=== PATIENT | female | born 1950 | race Caucasian/White ===

== ENCOUNTER 2017-10-25 06:20 | Emergency (ER) | payer MEDICARE, OTHER ==
[~2017-10-25] VITALS: Ht 160 cm; Wt 86.3 kg
[~2017-10-25 06:20] MED LIST: ASPI-630 PO; ATOR20TA PO; HYDR25TA9 PO; LEVO25TA4 PO; LOSA50TA6 PO; METF500T9 PO; POTA20LI27 PO
--- NOTE | 2017-10-25 06:42 | EKG ---
[address] [address] Test Date: 2017-10-25 Test Time: 06:31:18 Pat Name: BAILEY WRIGHT Department: Room: Gender: F Pumper Helper: JAN : 1950 Requested By: PAUL LEHMAN Order Number: [id number] Reading MD: Measurements Intervals [place] Rate: 64 P: 89 VT: 200 QRS: 9 QRSD: 74 T: 86 QT: 394 QTc: 410 Interpretive Statements SINUS RHYTHM VENTRICULAR PREMATURE COMPLEX(ES) ST & T ABNORMALITY, CONSIDER HIGH LATERAL ISCHEMIA OR LEFT VENTRICULAR STRAIN ABNORMAL ECG RI6.01 No previous ECG available for comparison
[2017-10-25 07:15] LABS: BASO % 1 % (0-3); EOS # 0.2 x10^3/uL (0.0-0.7); EOS % 3 % (0-3); HEMATOCRIT 40.6 % (36.0-47.0); HEMOGLOBIN 14.1 g/dL (12.0-15.5); LYMPH # 1.6 x10^3/uL (1.0-4.8); LYMPH % 28 % (24-48); MEAN CORPUSCULAR HEMOGLOBIN 31 pg (25-35); MEAN CORPUSCULAR HGB CONC 35 g/dL (31-37); MEAN CORPUSCULAR VOLUME 89 fL (79-100); MONO # 0.6 x10^3/uL (0.0-1.1); MONO % 10 % (0-9); NEUT # 3.4 x10^3uL (1.8-7.7); NEUT % 58 % (31-73); PLATELET COUNT 231 x10^3/uL (140-400); RED BLOOD COUNT 4.57 x10^6/uL (3.50-5.40); RED CELL DISTRIBUTION WIDTH 13.6 % (11.5-14.5); WHITE BLOOD COUNT 5.8 x10^3/uL (4.0-11.0)
[2017-10-25 07:39] LABS: ALBUMIN 3.7 g/dL (3.4-5.0); ALBUMIN/GLOBULIN RATIO 1.1 (1.0-1.7); CALCIUM 8.8 mg/dL (8.5-10.1); GFR 55.5; TOTAL BILIRUBIN 0.6 mg/dL (0.2-1.0); TOTAL PROTEIN 7.2 g/dL (6.4-8.2)
--- NOTE | 2017-10-25 07:44 | PHYS DOC ---
Past History Past Medical History: Arthritis, Diabetes, High Cholesterol, Hypertension, Hypothyroid Past Surgical History: No Surgical History Alcohol Use: None Drug Use: None Adult General Chief Complaint Chief Complaint: my heart stopped [facility] 67-year-old female patient with history of diabetes, dyslipidemia, hypertension and hypothyroidism without cardiac problem states she woke up with unusual feeling in her heart and felt looked like her heart was stopped. Patient complaining of not feeling right at that time without weakness, chest pain, shortness of breath, palpitation. Patient states the episodes last about 10 minutes and then she felt heart her heart beat for a short time. Patient states she had 2 other episodes of the same problem during the last 1 month without seeking medical attention. Review of Systems Review of Systems Constitutional: Denies fever or chills [] Eyes: Denies change in visual acuity, redness, or eye pain [] HENT: Denies nasal congestion or sore throat [] Respiratory: Denies cough or shortness of breath [] Cardiovascular: No additional information not addressed in HPI [] GI: Denies abdominal pain, nausea, vomiting, bloody stools or diarrhea [] : Denies dysuria or hematuria [] Musculoskeletal: Denies back pain or joint pain [] Integument: Denies rash or skin lesions [] Neurologic: Denies headache, focal weakness or sensory changes [] Endocrine: Denies polyuria or polydipsia [] All other systems were reviewed and found to be within normal limits, except as documented in this note. Allergies Allergies Allergies Coded Allergies Type Severity Reaction Last Updated Verified lisinopril Allergy Intermediate 10/25/17 No Physical Exam Physical Exam Constitutional: Well developed, well nourished, no acute distress, non-toxic appearance. [] HENT: Normocephalic, atraumatic, bilateral external ears normal, oropharynx moist, no oral exudates, nose normal. [] Eyes: PERRLA, EOMI, conjunctiva normal, no discharge. [] Neck: Normal range of motion, no tenderness, supple, no stridor. [] Cardiovascular:Heart rate regular rhythm, no murmur [] Lungs & Thorax: Bilateral breath sounds clear to auscultation [] Abdomen: Bowel sounds normal, soft, no tenderness, no masses, no pulsatile masses. [] Skin: Warm, dry, no erythema, no rash. [] Back: No tenderness, no CVA tenderness. [] Extremities: No tenderness, no cyanosis, no clubbing, ROM intact, no edema. [] Neurologic: Alert and oriented X 3, normal motor function, normal sensory function, no focal deficits noted. [] Psychologic: Affect normal, judgement normal, mood normal. [] Current Patient Data Vital Signs Vital Signs Date Time Temp Pulse Resp B/P (MAP) Pulse Ox O2 Delivery O2 Flow Rate FiO2 10/25/17 06:30 97.6 55 22 176/93 (120) 96 Room Air Lab Results Laboratory Tests Test 10/25/17 06:35 White Blood Count 5.8 x10^3/uL (4.0-11.0) Red Blood Count 4.57 x10^6/uL (3.50-5.40) Hemoglobin 14.1 g/dL (12.0-15.5) Hematocrit 40.6 % (36.0-47.0) Mean Corpuscular Volume 89 fL (79-100) Mean Corpuscular Hemoglobin 31 pg (25-35) Mean Corpuscular Hemoglobin Concent 35 g/dL (31-37) Red Cell Distribution Width 13.6 % (11.5-14.5) Platelet Count 231 x10^3/uL (140-400) Neutrophils (%) (Auto) 58 % (31-73) Lymphocytes (%) (Auto) 28 % (24-48) Monocytes (%) (Auto) 10 % (0-9) H Eosinophils (%) (Auto) 3 % (0-3) Basophils (%) (Auto) 1 % (0-3) Neutrophils # (Auto) 3.4 x10^3uL (1.8-7.7) Lymphocytes # (Auto) 1.6 x10^3/uL (1.0-4.8) Monocytes # (Auto) 0.6 x10^3/uL (0.0-1.1) Eosinophils # (Auto) 0.2 x10^3/uL (0.0-0.7) Basophils # (Auto) 0.0 x10^3/uL (0.0-0.2) EKG EKG EKG interpreted by me. EKG at 0 631 showed sinus rhythm with frequent PVCs, ST and T wave abnormality in lateral leads, no acute ST and T wave abnormality. Radiology/Procedures Radiology/Procedures [Two-view chest x-ray interpreted by me did not show acute finding except for mild cardiomegaly] Course & Med Decision Making Course & Med Decision Making Pertinent Labs and Imaging studies reviewed. (See chart for details) Evaluation of patient in ER showed 67-year-old female patient with several episodes of unusual feeling in her cough for the last 1 month. Patient had one episodes of feeling of her heart was stopped this morning that last about 10 minutes without loss of consciousness. Patient had frequent PVCs at arrival to ER that gradually resolved. Had unremarkable EKG and labs except for mild elevation of BNP. For patient admission for observation and continued on customer retention specialist. Patient refuses admission. Patient instructed to follow up with her primary care physician for possible Holter monitor. discharge: I've spoken with the patient and/or caregivers. I've explained the patient's condition, diagnosis and treatment plan based on information available to me at this time. I've answered the patient's and/or caregivers questions and addressed any concerns. The patient and/or caregivers have a good understanding the patient's diagnosis, condition and treatment plan as can be expected at this point. Vital signs have been stabilized. The patient's condition is stable for discharge from the emergency department. The patient will pursue further outpatient evaluation with her primary care provider or other designated consulting physician as outlined in the discharge instructions. Patient and/or caregivers are agreeable to this plan of care and follow-up instructions have been explained in detail. The patient and/or caregivers have received these instructions in written format and expressed understanding of these discharge instructions. The patient and her caregivers are aware that if any significant change in condition or worsening of symptoms should prompt him to immediately return to this of the closest emergency department. If an emergent department is not readily available I would encourage him to call 911. Dragon Disclaimer Dragon Disclaimer This electronic medical record was generated, in whole or in part, using a voice recognition dictation system. Departure Departure: Impression: Primary Impression: Arrhythmia Additional Impression: Heart failure Disposition: HOME, SELF-CARE (At 0834) Condition: IMPROVED Referrals: FELIX BARNES MD (PCP) Patient Instructions: Cardiac Arrhythmia Additional Instructions: Follow-up with your primary care physician in one or 2 days for possible Holter customer retention specialist Return if not getting better Problem Qualifiers PAUL LEHMAN MD Oct 25, 2017 07:44
[2017-10-25 08:30] VITALS: BP 149/85
--- NOTE | 2017-10-25 10:01 | RAD ---
PROCEDURE: CHEST PA LATERAL CLINICAL INDICATION: irregular heartbeat COMPARISON: 10/22/2015 FINDINGS: No pneumothorax identified. Cardiac and mediastinal contours unremarkable. No pulmonary consolidation or acute airspace disease. No acute osseous abnormalities identified. IMPRESSION: No pulmonary consolidation or acute airspace disease.
== END 2017-10-25 08:47 | disposition home or self-care (01) ==
LOC: ER 06:20
DX: I49.9 Cardiac arrhythmia, unspecified (principal); I11.0 Hypertensive heart disease with heart failure; I50.9 Heart failure, unspecified; E78.00 Pure hypercholesterolemia, unspecified; E11.9 Type 2 diabetes mellitus without complications; E03.9 Hypothyroidism, unspecified; Z88.8 Allergy status to other drugs, medicaments and biological substances
CPT/HCPCS: 36415; 71046; 80053; 82553; 83605; 83735; 83880; 84443; 84484; 85025; 85610; 93005; 99285-25

== ENCOUNTER 2019-06-26 05:28 | Observation (INO) | payer MEDICARE, OTHER ==
[~2019-06-26] VITALS: Ht 165.1 cm; Wt 86.0 kg
[~2019-06-26 05:28] MED LIST changes: +HYDR-2145 PO; -HYDR25TA9 PO; -LOSA50TA6 PO; +LOSA50TA86 PO; +METF500T11 PO; -METF500T9 PO
[2019-06-26] MEDS ORDERED: ASPIRIN 81 MG TAB.CHEW PO ONE (05:45)
--- NOTE | 2019-06-26 05:55 | PHYS DOC ---
Adult General Chief Complaint Chief Complaint: CHEST PAIN HPI HPI 69-year-old female presents with chest pain. Patient woke about 40 minutes prior to arrival with a central chest pain that radiates into her left arm and up her neck. She describes the pain as sharp. It is a 7 out of 10. She has not had pain like this before. She does have mild shortness of breath but denies diaphoresis. She is very active. 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 She has not been feeling abnormal prior to early this morning. No recent medication changes. No history of heart problems. She had a stress test several years ago. She denies fever or chills. Review of Systems Review of Systems Constitutional: Denies fever or chills [] Eyes: Denies change in visual acuity, redness, or eye pain [] HENT: Denies nasal congestion or sore throat [] Respiratory: Denies cough or shortness of breath [] Cardiovascular: No additional information not addressed in HPI [] GI: Denies abdominal pain, nausea, vomiting, bloody stools or diarrhea [] : Denies dysuria or hematuria [] Musculoskeletal: Denies back pain or joint pain [] Integument: Denies rash or skin lesions [] Neurologic: Denies headache, focal weakness or sensory changes [] Endocrine: Denies polyuria or polydipsia [] All other systems were reviewed and found to be within normal limits, except as documented in this note. Current Medications Current Medications Current Medications Medications (Trade) Dose Ordered Sig/Mora Start Time Stop Time Status Last Admin Dose Admin Aspirin (Children'S Aspirin) 324 mg 1X ONCE 06/26/19 05:45 06/26/19 05:46 UNV 06/26/19 05:44 324 MG Physical Exam Physical Exam Constitutional: Well developed, well nourished, no acute distress, non-toxic appearance. [] HENT: Normocephalic, atraumatic, bilateral external ears normal, oropharynx moist, no oral exudates, nose normal. [] Eyes: PERRLA, EOMI, conjunctiva normal, no discharge. [] Neck: Normal range of motion, no tenderness, supple, no stridor. [] Cardiovascular:Heart rate regular rhythm, no murmur [] Lungs & Thorax: Bilateral breath sounds clear to auscultation [] Abdomen: Bowel sounds normal, soft, no tenderness, no masses, no pulsatile masses. [] Skin: Warm, dry, no erythema, no rash. [] Back: No tenderness, no CVA tenderness. [] Extremities: No tenderness, no cyanosis, no clubbing, ROM intact, no edema. [] Neurologic: Alert and oriented X 3, normal motor function, normal sensory function, no focal deficits noted. [] Psychologic: Affect normal, judgement normal, mood normal. [] EKG EKG Sinus rhythm, rate 68, normal axis, no ST elevations or depressions, PACs, incomplete right bundle branch block.[] Radiology/Procedures Radiology/Procedures [] Course & Med Decision Making Course & Med Decision Making Pertinent Labs and Imaging studies reviewed. (See chart for details) The patient was given 324 aspirin. The patient's workup is pending. I am signing the patient out to Dr. Martins at 0600 for further management and final disposition. [] Dragon Disclaimer Dragon Disclaimer This electronic medical record was generated, in whole or in part, using a voice recognition dictation system. Departure Departure: Disposition: HOME/RESIDENCE PRIOR TO ADM Condition: STABLE Referrals: FELIX BARNES MD (PCP) YADIRA VENCES DO Jun 26, 2019 05:55
[2019-06-26 06:09] LABS: BASO % 1 % (0-3); EOS # 0.2 x10^3/uL (0.0-0.7); EOS % 2 % (0-3); HEMATOCRIT 38.4 % (36.0-47.0); HEMOGLOBIN 13.3 g/dL (12.0-15.5); LYMPH # 1.7 x10^3/uL (1.0-4.8); LYMPH % 24 % (24-48); MEAN CORPUSCULAR HEMOGLOBIN 31 pg (25-35); MEAN CORPUSCULAR HGB CONC 35 g/dL (31-37); MEAN CORPUSCULAR VOLUME 89 fL (79-100); MONO # 0.8 x10^3/uL (0.0-1.1); MONO % 11 % (0-9); NEUT # 4.3 x10^3uL (1.8-7.7); NEUT % 62 % (31-73); PLATELET COUNT 240 x10^3/uL (140-400); RED BLOOD COUNT 4.31 x10^6/uL (3.50-5.40); RED CELL DISTRIBUTION WIDTH 13.9 % (11.5-14.5)
[2019-06-26 06:17] LABS: ALBUMIN 3.5 g/dL (3.4-5.0); ALBUMIN/GLOBULIN RATIO 0.9 (1.0-1.7); CALCIUM 8.7 mg/dL (8.5-10.1); CREATININE 1.1 mg/dL (0.6-1.0); GFR 49.4; POTASSIUM 3.5 mmol/L (3.5-5.1); TOTAL BILIRUBIN 0.4 mg/dL (0.2-1.0); TOTAL PROTEIN 7.2 g/dL (6.4-8.2)
--- NOTE | 2019-06-26 06:47 | EKG ---
[address] [address] Test Date: 2019-06-26 Test Time: 05:34:06 Pat Name: BAILEY WRIGHT Department: Room: Gender: F Admissions Nurse: : 1950 Requested By: YADIRA VENCES Order Number: [id number] Reading MD: Measurements Intervals [place] Rate: 68 P: 68 [place]: 186 QRS: -2 QRSD: 82 T: 25 QT: 510 QTc: 543 Interpretive Statements SINUS RHYTHM VENTRICULAR PREMATURE COMPLEX(ES) ATRIAL PREMATURE COMPLEX(ES) LEFTWARD AXIS PROLONGED QT ABNORMAL ECG RI6.01 No previous ECG available for comparison
[2019-06-26] MEDS ORDERED: ACETAMINOPHEN 325 MG TABLET PO PRN (07:00)
[2019-06-26] MEDS ORDERED: NITROGLYCERIN SUBLINGUAL 0.4 MG BOTTLE OF 25. SL PRN (07:00)
[2019-06-26] MEDS ORDERED: ONDANSETRON PF 4 MG/2 ML VIAL. IV PRN (07:00)
[2019-06-26] MEDS ORDERED: MORPHINE SULFATE 4 MG/ML DISP.SYRIN. IV ONE (07:30)
--- NOTE | 2019-06-26 07:51 | RAD ---
Indication:Chest pain, cough. TECHNIQUE:Portable AP chest X-ray COMPARISON: None FINDINGS: Heart is normal in size. Mild prominence of bronchial markings. No focal consolidation. No pneumothorax or pleural effusion. Visualized bony thorax within normal limits. IMPRESSION: Suggestion of mild bronchitis/atypical/viral infection. Electronically signed by: Mathew Wells DO (06/26/2019 7:49 AM) [id number]
[2019-06-26 08:03] VITALS: BP 112/62
[2019-06-26] MEDS ORDERED: MAALOX:LIDO:APAP 6:2:1 ORAL SUSPENSION 180 ML BOTTLE. PO PRN (10:15)
[2019-06-26] MEDS ORDERED: LOSA50TA86 PO (10:16)
[2019-06-26] MEDS ORDERED: HYDR12.572 PO (10:16)
[2019-06-26] MEDS ORDERED: MELO15TA23 PO (10:16)
[2019-06-26] MEDS ORDERED: LEVO25TA4 PO (10:16)
[2019-06-26] MEDS ORDERED: METF500T11 PO (10:16)
[2019-06-26] MEDS ORDERED: PANTOPRAZOLE 40 MG TABLET. PO SCH (10:30)
[2019-06-26] MEDS ORDERED: DOXYCYCLINE HYCLATE 100 MG TABLET PO SCH (10:30)
[2019-06-26] MEDS ORDERED: LEVOTHYROXINE 25 MCG TABLET. PO SCH (10:30)
[2019-06-26] MEDS ORDERED: MELOXICAM 15 MG TABLET. PO SCH (10:30)
[2019-06-26] MEDS ORDERED: HEPARIN 25,000UTS/500ML PREMIX 500 ML IV PRN ×2 (10:45→11:15)
[2019-06-26] MEDS ORDERED: NITROGLYCERIN OINT 1 GM PACKET. TP ONE (10:45)
[2019-06-26 10:54] VITALS: BP 157/67
--- NOTE | 2019-06-26 10:56 | EKG ---
[address] [address] Test Date: 2019-06-26 Test Time: 10:19:47 Pat Name: BAILEY WRIGHT Department: Room: 115 A Gender: F Career Development Associate: : 1950 Requested By: AMBER VILLAFANA Order Number: [id number] Reading MD: Measurements Intervals [place] Rate: 45 P: 90 ND: 182 QRS: 13 QRSD: 74 T: 56 QT: 470 QTc: 409 Interpretive Statements SINUS BRADYCARDIA T ABNORMALITY IN HIGH LATERAL LEADS ABNORMAL ECG RI6.02 No previous ECG available for comparison
[2019-06-26] MEDS ORDERED: HEPARIN for IV BOLUS 10,000 UNIT/10 ML VIAL. IV ONE (11:15)
[2019-06-26] MEDS ORDERED: HEPARIN for IV BOLUS 10,000 UNIT/10 ML VIAL. IV PRN ×2 (11:15)
[2019-06-26 11:30] VITALS: BP 168/56
--- NOTE | 2019-06-26 11:51 | HP ---
ADMIT DATE: 06/26/2019 HISTORY OF PRESENT ILLNESS: A 69-year-old female with history of diabetes. The patient apparently this morning started to develop substernal chest pain, feeling like something was going heaviness through her chest and as a result of that, the patient noted this pain woke her up. Pain radiated down her left arm and up into her neck. She said the pain was approximately 7/10. She has some shortness of breath, but denied nausea, vomiting, or diaphoresis. In any case, the patient came in through the Emergency Room. She was admitted here to the floor for observation as her initial cardiac enzymes and EKGs were unremarkable. The patient, however, continued to have recurrent chest pain on the floor and was given additional nitroglycerin and repeat EKG and repeat troponins and the latter increased to greater than 1. As a result of this, a call was placed to Dr. Rabago, title investigator, who agreed to accept her in transfer to [place], placed her on a heparin drip, nitro paste and she will be transferred to the ICU down there at [place] for further evaluation by Dr. Rabago. PAST MEDICAL HISTORY: Includes that of angina, hypertension, arthritis, diabetes, hypothyroidism. FAMILY HISTORY: Unremarkable. ALLERGIES: LISINOPRIL. HOME MEDICATIONS: Include that of losartan 50 mg daily, meloxicam 15 mg daily, hydrochlorothiazide daily, metformin 500 mg before breakfast and levothyroxine 25 mcg daily. SOCIAL HISTORY: The patient denies smoking, alcohol or drug use. She is a full code. REVIEW OF SYSTEMS: The patient denies headache. Does have some mild shortness of breath. Denies any diaphoresis or nausea, vomiting. Does have the chest pain as described, dull achy sensation in substernal chest area, radiating down the left arm. The patient denies any abdominal pain, nausea, vomiting, melena, hematochezia, hematemesis and neurologically she has had no changes in her neural system. PHYSICAL EXAMINATION: GENERAL: This is a pleasant white female, in no apparent distress at the present time. VITAL SIGNS: Blood pressure 157/67, respiratory rate 20, pulse 45, afebrile, body mass index of 31.5. Weight 85.98 kilos, height 165 cm. The patient is alert and oriented. HEENT: Head atraumatic, normocephalic. Eyes: PERRLA without jaundice. The mouth and throat were normal. NECK: Supple, no JVD or thyromegaly. LUNGS: Diminished throughout, poor movement of air, but clear throughout. CARDIOVASCULAR: Regular sinus rhythm, occasional dropped beat. ABDOMEN: Soft, nontender, no rebound or guarding. Positive bowel sounds, no hepatosplenomegaly. EXTREMITIES: No clubbing, cyanosis, nor edema. Pulses noted distally 2/4. NEUROLOGIC: The patient is alert and oriented. Speech is fluent, spontaneous, appropriate. Cranial nerves 2-12 grossly intact. Moving all extremities well. Does have some tingling down the left arm as noted. LABORATORY DATA: The patient's labs as indicated sodium and potassium 138 and 3.5, BUN and creatinine 21 and 1.1, GFR 49, blood sugar of 164. Last troponin 1.020, elevated. Albumin is slightly low. The patient's CBC: White count 7, hemoglobin 13 and hematocrit 38. Chest x-ray was unremarkable and clear except for possible mild bronchitis, started on doxycycline for this. IMPRESSION: Therefore, possible angina, chest pain, essential hypertension, bradycardia, elevated troponin levels, type 2 diabetes, obesity, chronic kidney disease stage 3. PLAN: The patient will be transferred down to [place] in care of Dr. Rabago, Cardiology, make further evaluation as he sees appropriate. She will be transferred via EMS. Transfer orders have been related to the ICU doctors at [place]. AMBER VILLAFANA MD DR: LYLA/shilo JOB#: [id number] / [id number]
[2019-06-26] MEDS ORDERED: LACTOBACILLUS RHAMNOSUS GG 1 CAPSULE. PO SCH (21:00)
[2019-06-27 03:06] LABS: HEMOGLOBIN A1C 6.9 % (4.8-5.6)
[2019-06-27] MEDS ORDERED: metFORMIN XR 500 MG TAB.ER.24H PO SCH (08:00)
[2019-06-27] MEDS ORDERED: LOSARTAN 50 MG TABLET. PO SCH (09:00)
[2019-06-27] MEDS ORDERED: hydroCHLOROthiazide 12.5 MG CAPSULE PO SCH (09:00)
== END 2019-06-26 11:30 | disposition short-term general hospital (02) ==
LOC: ER 05:28 → MERGE 08:01 → 1 SOUTH 08:01
PROVIDERS: ADMIT Family Medicine; ATTEND Family Medicine
DX: R07.2 Precordial pain (principal); E11.9 Type 2 diabetes mellitus without complications; I10 Essential (primary) hypertension; E03.9 Hypothyroidism, unspecified; M19.90 Unspecified osteoarthritis, unspecified site; E11.22 Type 2 diabetes mellitus with diabetic chronic kidney disease; I12.9 Hypertensive chronic kidney disease with stage 1 through stage 4 chronic kidney disease, or unspecified chronic kidney disease; N18.3 Chronic kidney disease, stage 3 (moderate); R79.89 Other specified abnormal findings of blood chemistry; E66.9 Obesity, unspecified
CPT/HCPCS: 36415; 71045; 80053; 80061; 83036; 83735; 84443; 84484; 85025; 85379; 85610; 85730; 93005; 96374; 96375; 99284; G0378; J1644; J2270; G0379

== ENCOUNTER → 2020-08-07 | Outpatient (CLI) | payer MEDICARE ==
[~2020-08-07] MED LIST changes: +HYDR12.572 PO; +MELO15TA23 PO; +METF-658 PO; -METF500T11 PO
--- NOTE | 2020-08-07 16:01 | RAD ---
DATE: 08/07/2020 2:00 PM EXAM: MAMMO IGOR BOOTH, BREAST BILATERAL HISTORY: 70-year-old woman due for mammographic screening presents with tenderness in both breasts, no palpable abnormality on self exam. Patient reports that her provider questioned a palpable area where her focal tenderness was located. COMPARISON: None. This will serve as a new baseline. Bilateral CC and MLO views of the breasts were performed. Bilateral breast tomosynthesis was performed in CC and MLO projections. This study was interpreted with the benefit of Computerized Aided Detection (CAD). Targeted ultrasound of the right breast and left chest wall in the areas of tenderness was also performed. FINDINGS: Breast Density: FATTY The Breast Parenchyma is primarily fatty replaced. Breast parenchyma level density A. A BB marker in the upper inner right breast at the approximate 1:00 position 12 cm from the nipple identifies the patient's reported area of focal tenderness in the right breast. A second BB marker in the far lateral left breast projecting over the pectoralis muscle and is not visible on the cc view is present, identifying the area of focal tenderness in the lateral left chest wall. There are no mammographic correlates to either areas of focal tenderness. No suspicious masses, microcalcifications or architectural distortion is present to suggest malignancy in either breast. The visualized axillae are unremarkable. Furthermore, targeted ultrasound of the bilateral breasts in the areas of clinical concern including the right breast 1:00 position 10 cm from the nipple (on ultrasound) and the 11:00 left breast 11 cm from the nipple, revealed no sonographic correlate to the areas of focal tenderness. Patient reports at this visit that the tenderness has abated. IMPRESSION: Negative bilateral mammogram and targeted breast ultrasound. No evidence of malignancy. BI-RADS CATEGORY: 1 NEGATIVE RECOMMENDED FOLLOW-UP: CLIN FOLLOW UP IMAGING CLINICALLY INDICATED Annual screening mammography is recommended, unless clinically indicated sooner based on symptoms or change in physical exam. PQRS compliance statement: Patient information was entered into a reminder system with a target due date for the next mammogram. Mammography is a sensitive method for finding small breast cancers, but it does not detect them all and is not a substitute for careful clinical examination. A negative mammogram does not negate a clinically suspicious finding and should not result in delay in biopsying a clinically suspicious abnormality. "Our facility is accredited by the [employer] Mammography Program."
== END ==
LOC: MAMMO 13:51
PROVIDERS: ATTEND Specialist
DX: N63.0 Unspecified lump in unspecified breast (principal); N64.89 Other specified disorders of breast
CPT/HCPCS: 76641; 77066; G0279; 77062

== ENCOUNTER 2022-01-16 10:26 | Emergency (ER) | payer MEDICARE ==
[~2022-01-16] VITALS: Ht 165.1 cm; Wt 86.3 kg
--- NOTE | 2022-01-16 10:48 | RAD ---
XR CHEST 1V History: Reason: CP / Spl. Instructions: / History: Comparison: October 25, 2017 Findings: No consolidation or pleural effusion. Normal heart size. No pneumothorax. Impression: 1. No acute cardiopulmonary process. Electronically signed by: Josh Lane DO (01/16/2022 10:46 AM) [id number]
--- NOTE | 2022-01-16 10:50 | EKG ---
[address] [address] Test Date: 2022-01-16 Test Time: 10:32:59 Pat Name: BAILEY WRIGHT Department: Room: Gender: F Surgery Scheduling Coordinator: CATRACHITA : 1950 Requested By: YADIRA VENCES Order Number: [id number] Reading MD: David Kim Measurements Intervals [place] Rate: 53 P: 61 [place]: 178 QRS: -1 QRSD: 76 T: 73 QT: 412 QTc: 389 Interpretive Statements SINUS RHYTHM LEFTWARD AXIS NON SPECIFIC ST-T WAVE CHANGES Electronically Signed On 01-17-2022 18:13:09 CDT by David Kim
--- NOTE | 2022-01-16 10:54 | PHYS DOC ---
Past History Past Medical History: Arthritis, Diabetes, Hypertension, Hypothyroid Past Surgical History: Other Additional Past Surgical Histo: Stent cardiac. Alcohol Use: None Drug Use: None General Adult EDM: Chief Complaint: CHEST PAIN HPI: HPI: 71-year-old female presents with chest pain. The patient has been having pain very short, sharp episodes of chest pain for the last 8 days. These seem to happen at random. Sometimes she is doing activity sometimes she is sitting on the couch. She states that it is there and gone in an instant. She denies shortness of breath or diaphoresis. She has no other significant symptoms. Today she does have some neck discomfort and a posterior headache but that has not been associated with chest pain. Patient does have a history of one coronary stent in 2019. She has not had a stress test since. She denies fever or chills. Review of Systems: Review of Systems: Constitutional: Denies fever or chills Eyes: Denies change in visual acuity HENT: Denies nasal congestion or sore throat Respiratory: Denies cough or shortness of breath Cardiovascular: Chest pain GI: Denies abdominal pain, nausea, vomiting, bloody stools or diarrhea : Denies dysuria Musculoskeletal: Denies back pain or joint pain Integument: Denies rash Neurologic: Headache. Denies focal weakness or sensory changes Endocrine: Denies polyuria or polydipsia Lymphatic: Denies swollen glands Psychiatric: Denies depression or anxiety Allergies: Allergies: Allergies Coded Allergies Type Severity Reaction Last Updated Verified lisinopril Allergy Intermediate 10/25/17 No Physical Exam: PE: Constitutional: Well developed, well nourished, no acute distress, non-toxic appearance. [] HENT: Normocephalic, atraumatic, bilateral external ears normal, oropharynx moist, no oral exudates, nose normal. [] Eyes: PERRLA, EOMI, conjunctiva normal, no discharge. [] Neck: Normal range of motion, no tenderness, supple, no stridor. [] Cardiovascular:Heart rate regular rhythm, no murmur [] Lungs & Thorax: Bilateral breath sounds clear to auscultation [] Abdomen: Bowel sounds normal, soft, no tenderness, no masses, no pulsatile masses. [] Skin: Warm, dry, no erythema, no rash. [] Back: No tenderness, no CVA tenderness. [] Extremities: No tenderness, no cyanosis, no clubbing, ROM intact, no edema. [] Neurologic: Alert and oriented X 3, normal motor function, normal sensory function, no focal deficits noted. [] Psychologic: Affect normal, judgement normal, mood normal. [] Current Patient Data: Vital Signs: Vital Signs Date Time Temp Pulse Resp B/P (MAP) Pulse Ox O2 Delivery O2 Flow Rate FiO2 01/16/22 10:32 98.2 54 16 157/63 (94) 96 Room Air EKG: EKG: Sinus rhythm, rate 53, leftward axis, no ST elevation or depression. [] Radiology/Procedures: Radiology/Procedures: [] Impressions: XR CHEST 1V History: Reason: CP / Spl. Instructions: / History: Comparison: October 25, 2017 Findings: No consolidation or pleural effusion. Normal heart size. No pneumothorax. Impression: 1. No acute cardiopulmonary process. Electronically signed by: Elizabeth Savage DO (01/16/2022 10:46 AM) [id number] DICTATED AND SIGNED BY: ELIZABETH SAVAGE DO DATE: 01/16/22 1045 CC: YADIRA VENCES DO; FELIX BARNES MD ~ Heart Score: C/O Chest Pain: Yes HEART Score for Chest Pain: HEART Score for Chest Pain Response (Comments) Value History Slighlty/Non-Suspicious 0 ECG Normal 0 Age > 65 2 Risk Factors >3 Risk Factors or Hx CAD 2 Troponin < Normal Limit 0 Total 4 Risk Factors: Risk Factors: DM, Current or recent (<one month) smoker, HTN, HLP, family history of CAD, obesity. Risk Scores: Score 0 - 3: 2.5% MACE over next 6 weeks - Discharge Home Score 4 - 6: 20.3% MACE over next 6 weeks - Admit for Clinical Observation Score 7 - 10: 72.7% MACE over next 6 weeks - Early Invasive Strategies Course & Med Decision Making: Course & Med Decision Making Pertinent Labs and Imaging studies reviewed. (See chart for details) The patient's EKG is unremarkable. Her chest x-ray is negative for acute findings. Her labs are unremarkable. Troponin is negative. I am not sure what is causing the patient's discomfort. It could be an irritated nerve or musculoskeletal. The patient's heart score is a 4 however she does not feel admission is necessary. It is only a 4 due to her previous history of a stent at age. Her descriptions of the pain are reassuring. I have informed the patient that if the symptoms worsen or new symptoms develop that she may need to be reevaluated. She states verbal understanding. She is stable for discharge at this time. [] Dragon Disclaimer: Dragon Disclaimer: This electronic medical record was generated, in whole or in part, using a voice recognition dictation system. Departure Departure: Impression: Primary Impression: Chest pain Disposition: HOME / SELF CARE / HOMELESS Condition: STABLE Referrals: FELIX BARNES MD (PCP) Patient Instructions: Chest Pain (Nonspecific), [id number] YDAIRA VENCES DO Jan 16, 2022 10:54
[2022-01-16 11:00] LABS: BASO % 1 % (0-3); EOS # 0.1 x10^3/uL (0.0-0.7); EOS % 2 % (0-3); HEMATOCRIT 37.9 % (36.0-47.0); HEMOGLOBIN 12.9 g/dL (12.0-15.5); LYMPH # 1.1 x10^3/uL (1.0-4.8); LYMPH % 18 % (24-48); MEAN CORPUSCULAR HEMOGLOBIN 31 pg (25-35); MEAN CORPUSCULAR HGB CONC 34 g/dL (31-37); MEAN CORPUSCULAR VOLUME 92 fL (79-100); MONO # 0.5 x10^3/uL (0.0-1.1); MONO % 9 % (0-9); NEUT # 4.1 x10^3uL (1.8-7.7); NEUT % 70 % (31-73); PLATELET COUNT 236 x10^3/uL (140-400); RED BLOOD COUNT 4.14 x10^6/uL (3.50-5.40); RED CELL DISTRIBUTION WIDTH 13.8 % (11.5-14.5); WHITE BLOOD COUNT 5.8 x10^3/uL (4.0-11.0)
[2022-01-16 11:09] LABS: CALCIUM 8.7 mg/dL (8.5-10.1); CREATININE 1.1 mg/dL (0.6-1.0); GFR 49.1
[2022-01-16 11:14] LABS: ALBUMIN 3.5 g/dL (3.4-5.0); ALBUMIN/GLOBULIN RATIO 1.1 (1.0-1.7); TOTAL BILIRUBIN 0.4 mg/dL (0.2-1.0); TOTAL PROTEIN 6.6 g/dL (6.4-8.2)
[2022-01-16 11:46] VITALS: BP 147/54
[2022-01-16 13:00] LABS: BACTERIA,URINE 0 /HPF (0-FEW); CLARITY,URINE CLEAR; COLOR,URINE YELLOW; GLUCOSE,URINE NEG (NEG); NITRITE,URINE NEG (NEG); RBC,URINE 0 /HPF (0-2); UROBILINOGEN,URINE 0.2 mg/dL (0.2 mg/dL); WBC,URINE OCC /HPF (0-4)
[2022-01-16 13:01] LABS: SQUAMOUS EPITHELIAL CELL,UR OCC /LPF
== END 2022-01-16 12:34 | disposition home or self-care (01) ==
LOC: ER 10:26
DX: R07.89 Other chest pain (principal); R51.9 Headache, unspecified; M54.2 Cervicalgia; M19.90 Unspecified osteoarthritis, unspecified site; E11.9 Type 2 diabetes mellitus without complications; I10 Essential (primary) hypertension; E03.9 Hypothyroidism, unspecified; Z88.8 Allergy status to other drugs, medicaments and biological substances
CPT/HCPCS: 36415; 71045; 80053; 81001; 84484; 85025; 93005; 99285